=== PATIENT | female | born 1990 | race Caucasian/White ===

== ENCOUNTER 2018-04-20 18:11 | Emergency (ER) | payer OTHER ==
[~2018-04-20 18:11] MED LIST: PREN1TAB59 PO
== END 2018-04-20 18:53 | disposition left against medical advice (07) ==
LOC: ER 18:11
DX: K08.89 Other specified disorders of teeth and supporting structures (principal); R51 Headache; H53.8 Other visual disturbances; Z53.21 Procedure and treatment not carried out due to patient leaving prior to being seen by health care provider